=== PATIENT | female | born 1975 | race Caucasian/White ===

== ENCOUNTER 2024-04-18 14:55 | Emergency (ER) | payer OTHER ==
[~2024-04-18] VITALS: Ht 165.1 cm; Wt 83.5 kg
[2024-04-18 15:35] VITALS: BP 140/84; TEMP 98.4; O2SAT 95
== END 2024-04-18 15:58 | disposition home or self-care (01) ==
LOC: ER 15:07
DX: R00.2 Palpitations (principal); R20.0 Anesthesia of skin; J45.909 Unspecified asthma, uncomplicated